=== PATIENT | female | born 1955 | race Caucasian/White ===

== ENCOUNTER 2024-04-27 12:33 | Inpatient (IN) | payer OTHER, MEDICAID ==
[~2024-04-27] VITALS: Ht 170.2 cm; Wt 126.6 kg
[2024-04-27 12:33] VITALS: BP_SYST 149; PULSE 67; RESP 13; O2SAT 97
[2024-04-27] MEDS ORDERED: iohexoL 350 mgI/mL, 100 ML INFUS..BTL IV ONE (12:46)
[2024-04-27 12:57] LABS: BASOPHILS % (AUTO) 0.5 % (0.0-2.0); EOSINOPHILS # (AUTO) 0.1 K/uL (0.0-0.4); EOSINOPHILS % (AUTO) 0.8 % (0.0-4.0); HEMATOCRIT 41.8 % (36-48); HEMOGLOBIN 14.2 g/dL (12.0-16.0); LYMPHOCYTES % (AUTO) 36.3 % (20.5-51.5); MEAN CORPUSCULAR HEMOGLOBIN 30 pg (27-31); MEAN CORPUSCULAR HGB CONC 34 % (32-36); MEAN CORPUSCULAR VOLUME 88 fL (79.0-98.0); MONOCYTES # (AUTO) 0.6 K/uL (0.0-1.0); MONOCYTES % (AUTO) 6.7 % (1.7-9.3); NEUTROPHILS # (AUTO) 4.6 K/uL (1.8-7.7); NEUTROPHILS % (AUTO) 55.7 % (40.0-70.0); PLATELET COUNT (AUTO) 268 K/uL (130-430); RED BLOOD CELL COUNT(AUTO) 4.74 MIL/uL (4.2-6.2); RED CELL DISTRIBUTION WIDTH 14.9 % (9.0-15.0); WHITE BLOOD COUNT (AUTO) 8.3 K/uL (4.8-10.8)
[2024-04-27 13:10] LABS: INR 1.1 (0.8-1.2)
[2024-04-27 13:12] LABS: ANION GAP 9 (5-15); CALCIUM 9.1 mg/dL (8.4-11.0); CARBON DIOXIDE 29 mmol/L (23-29); CHLORIDE 108 mmol/L (98-107); CHOLESTEROL 227 mg/dL (<200); CREATININE 0.72 mg/dL (0.55-1.30); GFR AFRICAN AMERICAN 104 mL/min (>90); GLUCOSE 113 mg/dL (74-106); HDL CHOLESTEROL 46 mg/dL (>55); POTASSIUM 3.4 mmol/L (3.5-5.1); SODIUM SERUM 146 mmol/L (136-145); TRIGLYCERIDES 202 mg/dL (30-150); UREA NITROGEN, BLOOD 11 mg/dL (8-21)
[2024-04-27 13:28] LABS: GFR NON AFRICAN-AMERICAN 86 mL/min (>90)
[2024-04-27] MEDS: MORPHINE 4 MG INJ. 4 MG/ML VIAL IVP ONE (13:39)
[2024-04-27 13:41] LABS: BILIRUBIN,URINE NEGATIVE (NEGATIVE); BLOOD, URINE NEGATIVE (NEGATIVE); CLARITY/URINE CLEAR (CLEAR); COLOR,URINE YELLOW (YELLOW); GLUCOSE,URINE NEGATIVE (NEGATIVE); KETONES,URINE NEGATIVE (NEGATIVE); LEUKOCYTE ESTERASE ,URINE NEGATIVE (NEGATIVE); NITRITE, URINE NEGATIVE (NEGATIVE); PROTEIN URINE NEGATIVE (NEGATIVE); UROBILINOGEN,URINE 0.2 (0.2-1.0)
[2024-04-27] MEDS: ACETAMINOPHEN 500 MG TABLET PO ONE (13:41)
[2024-04-27 14:18] LABS: BARBITURATE, URINE NEGATIVE (NEG <=200); BENZODIAZEPINE, URINE POSITIVE (NEG <=150); CANNABINOID, URINE NEGATIVE (NEG <=50); COCAINE, URINE NEGATIVE (NEG <=150); METHAMPHETAMINES SCREEN,URINE NEGATIVE (NEG <=500); OPIATE, URINE NEGATIVE (NEG <=100); PHENCYCLIDINE SCREEN,URINE NEGATIVE (NEG <=25); URINE AMPHETAMINE NEGATIVE (NEG <=500); URINE METHADONE NEGATIVE (NEG <=200); URINE OXYCODONE SCREEN NEGATIVE (NEG <=100)
[2024-04-27 14:19] LABS: UR TRICYCLIC ANTIDEPRESSANTS NEGATIVE (NEG <=300)
[2024-04-27] MEDS: ASPIRIN 81 MG TABLET(ECOTRIN) PO ONE ×2 (15:30→18:35)
[2024-04-27] MEDS: POTASSIUM CHLORIDE 20 MEQ TABLET.ER PO ONE (17:05)
[2024-04-27] MEDS: MORPHINE 4 MG INJ. 4 MG/ML VIAL IVP PRN (17:05)
[2024-04-27] MEDS ORDERED: cloNIDine HCL 0.1 MG TABLET PO PRN (17:15)
[2024-04-27] MEDS ORDERED: LISI10TA29 PO (17:17)
[2024-04-27 18:07] VITALS: BP_SYST 146; PULSE 65; RESP 20; TEMP 98.1; O2SAT 96
[2024-04-27 20:00] VITALS: BP_SYST 121; PULSE 66; RESP 18; TEMP 97.6; O2SAT 95; O2SAT 96
[2024-04-27] MEDS: PANTOPRAZOLE SODIUM 40 MG TAB PO SCH (21:06)
[2024-04-28] VITALS: BP_SYST 118; PULSE 73; RESP 18; TEMP 98.1; O2SAT 95
[2024-04-28] MEDS: ONDANSETRON HCL 4 MG/2 ML VIAL IVP PRN (00:01)
[2024-04-28 08:00] VITALS: BP_SYST 123; PULSE 63; RESP 16; TEMP 96.7; O2SAT 95
[2024-04-28] MEDS: ASPIRIN 81 MG TABLET(ECOTRIN) PO SCH (08:28)
[2024-04-28] MEDS ORDERED: ACETAMINOPHEN 500 MG TABLET PO PRN (08:45)
[2024-04-28] MEDS: LORazepam 1 MG TABLET PO ONE (09:47)
[2024-04-28] MEDS: LORazepam 2 MG/ML VIAL ONE ×2 (09:47→11:48)
[2024-04-28] MEDS: LORazepam 1 MG TABLET ONE (09:51)
[2024-04-28] MEDS: LORazepam 2 MG/ML VIAL IVP ONE (11:46)
[2024-04-28] MEDS ORDERED: INSULIN REGULAR, HUMAN 100 UNITS/ML, 3 ML VIAL (humuLIN R) SUBCUT PRN (13:30)
[2024-04-28] MEDS ORDERED: DEXTROSE 50% JECT 50 ML DISP.SYRIN IVP PRN (13:30)
[2024-04-28 15:25] LABS: HEMOGLOBIN A1C 5.72 % (<5.7)
[2024-04-28 16:17] VITALS: BP_SYST 145; PULSE 60; RESP 18; TEMP 98; O2SAT 96
[2024-04-28 20:00] VITALS: BP_SYST 120; PULSE 70; RESP 18; TEMP 97.5; O2SAT 96
[2024-04-29] VITALS: BP_SYST 126; PULSE 72; RESP 18; TEMP 97.6; O2SAT 95
[2024-04-29 06:55] LABS: BASOPHILS % (AUTO) 0.1 % (0.0-2.0); EOSINOPHILS # (AUTO) 0.1 K/uL (0.0-0.4); EOSINOPHILS % (AUTO) 1.4 % (0.0-4.0); HEMATOCRIT 40.4 % (36-48); HEMOGLOBIN 13.7 g/dL (12.0-16.0); LYMPHOCYTES % (AUTO) 41.6 % (20.5-51.5); MEAN CORPUSCULAR HEMOGLOBIN 30 pg (27-31); MEAN CORPUSCULAR HGB CONC 34 % (32-36); MEAN CORPUSCULAR VOLUME 90 fL (79.0-98.0); MONOCYTES # (AUTO) 0.6 K/uL (0.0-1.0); NEUTROPHILS # (AUTO) 3.4 K/uL (1.8-7.7); NEUTROPHILS % (AUTO) 47.9 % (40.0-70.0); PLATELET COUNT (AUTO) 238 K/uL (130-430); RED BLOOD CELL COUNT(AUTO) 4.51 MIL/uL (4.2-6.2); RED CELL DISTRIBUTION WIDTH 14.7 % (9.0-15.0); WHITE BLOOD COUNT (AUTO) 7.1 K/uL (4.8-10.8)
[2024-04-29 07:56] LABS: ALBUMIN 3.2 g/dL (3.4-4.8); CALCIUM 8.9 mg/dL (8.4-11.0); CREATININE 0.81 mg/dL (0.55-1.30); FREE T4 (FREE THYROXINE) 0.8 ng/dL (0.6-1.6); THYROID STIMULATING HORMONE 3.76 uIu/mL (0.34-4.82); TOTAL BILIRUBIN 0.2 mg/dL (0.0-1.0); TOTAL PROTEIN, SERUM 6.1 g/dL (6.4-8.3)
[2024-04-29 08:05] VITALS: BP_SYST 139; PULSE 65; RESP 14; TEMP 97.8; O2SAT 95
[2024-04-29] MEDS: ATORVASTATIN 20 MG TABLET PO SCH (09:03)
[2024-04-29 09:54] VITALS: O2SAT 95
[2024-04-29 12:39] VITALS: BP_SYST 130; PULSE 61; RESP 18; TEMP 99; O2SAT 94
[2024-04-29 16:57] VITALS: BP_SYST 115; PULSE 65; RESP 18; TEMP 97.9; O2SAT 93
[2024-04-29 20:00] VITALS: BP_SYST 149; PULSE 64; RESP 16; TEMP 98.2; O2SAT 99
[2024-04-30] VITALS: BP_SYST 130; PULSE 61; RESP 16; TEMP 97.8; O2SAT 98
[2024-04-30 08:00] VITALS: BP_SYST 133; PULSE 64; RESP 20; TEMP 97.4
[2024-04-30 10:00] VITALS: O2SAT 95
[2024-04-30] MEDS ORDERED: Aspirin Ec PO (11:10)
[2024-04-30] MEDS ORDERED: LIP20 PO (11:10)
[2024-04-30] MEDS ORDERED: HYDR-3917 PO (11:57)
[2024-04-30 12:00] VITALS: BP_SYST 132; PULSE 62; RESP 18; TEMP 97.6; O2SAT 97
[2024-04-30 12:12] VITALS: BP_SYST 142; PULSE 69; RESP 18; TEMP 98.3; O2SAT 94
== END 2024-04-30 12:32 | disposition home or self-care (01) | DRG 103 ==
LOC: SED 12:33 → STU 16:02
PROVIDERS: ADMIT Internal Medicine; ATTEND Internal Medicine
DX: R51.9 Headache, unspecified (principal); G45.9 Transient cerebral ischemic attack, unspecified; G81.94 Hemiplegia, unspecified affecting left nondominant side; Z68.41 Body mass index [BMI] 40.0-44.9, adult; I10 Essential (primary) hypertension; E11.9 Type 2 diabetes mellitus without complications; E66.01 Morbid (severe) obesity due to excess calories; J44.9 Chronic obstructive pulmonary disease, unspecified; F41.9 Anxiety disorder, unspecified; Z90.49 Acquired absence of other specified parts of digestive tract; Z87.891 Personal history of nicotine dependence; Z86.73 Personal history of transient ischemic attack (TIA), and cerebral infarction without residual deficits; Z86.0100 Personal history of colon polyps, unspecified; Z79.899 Other long term (current) drug therapy
CPT/HCPCS: 36415; 70450; 70496; 70498; 70551; 71045; 80048; 80053; 80061; 80307; 81001; 81003; 82533; 82948; 83037; 84439; 84443; 84484; 85025; 85610; 85651; 85730; 86886; 86900; 86901; 93005; 93306; 97112-GP; 97116-GP; 99285; G0378; J2060; J2270; J2405; Q9967